=== PATIENT | female | born 1960 | race African-American/Black ===

== ENCOUNTER 2018-03-04 18:35 | Inpatient (IN) ==
[2018-03-04 19:36] LABS: Basophils % 0.4 % (0.0-0.8); Eosinophils % 0.2 % (0.00-10.9); Hematocrit 35.2 VOL% (35.7-47.0); Immature Granulocytes % 0.4 %; Immature Granulocytes Absolute 0.04 #; Lymphocytes # 1.8 10*3/uL (1.4-4.0); Lymphocytes % 20.6 % (21.3-54.2); Mean Corpuscular HGB Conc 34.1 GM/DL (32-36); Mean Corpuscular Hemoglobin 27 PG (27-34); Mean Platelet Volume 9.3 FL (9.6-12.0); Monocytes # 0.7 10*3/uL (0.11-0.8); Monocytes % 7.9 % (1.7-12.7); Neutrophils # 6.3 10*3/uL (1.4-7.4); Neutrophils % 70.5 % (38.7-73.9); Platelet Count 247 T/CUMM (130-400); White Blood Count 8.9 T/CUMM (4-12)
[2018-03-04 20:00] LABS: PT Patient Result 10.5 SECS
[2018-03-04 20:01] LABS: Albumin 2.8 G/DL (3.4-5.0); Bilirubin,Total 0.4 MG/DL (0.2-1.0); Lactic Acid 1.2 MMOL/L (0.4-2.0); Osmolality,Calculated 276.5 MOS/KG (273-304); Potassium 4.1 MMOL/L (3.5-5.1); Total Protein 7.1 G/DL (6.4-8.3)
[2018-03-05 06:49] LABS: Basophils % 0.4 % (0.0-0.8); Eosinophils # 0.1 10*3/uL (0.0-0.87); Eosinophils % 0.7 % (0.00-10.9); Hematocrit 33.4 VOL% (35.7-47.0); Hemoglobin 11.2 GM/DL (12.0-16.0); Immature Granulocytes % 0.6 %; Immature Granulocytes Absolute 0.04 #; Lymphocytes # 2.1 10*3/uL (1.4-4.0); Lymphocytes % 30.6 % (21.3-54.2); Mean Corpuscular HGB Conc 33.5 GM/DL (32-36); Mean Corpuscular Hemoglobin 27 PG (27-34); Mean Corpuscular Volume 81.3 FL (87-102); Mean Platelet Volume 9.8 FL (9.6-12.0); Monocytes # 0.8 10*3/uL (0.11-0.8); Monocytes % 11.1 % (1.7-12.7); Neutrophils # 3.9 10*3/uL (1.4-7.4); Neutrophils % 56.6 % (38.7-73.9); Platelet Count 254 T/CUMM (130-400); Red Blood Count 4.11 MC/CUMM (3.8-5.5); Red Cell Distribution Width 12.3 % (9.3-17.3)
[2018-03-05 07:02] LABS: Albumin 2.5 G/DL (3.4-5.0); Bilirubin,Total 0.7 MG/DL (0.2-1.0); Calcium 8.6 MG/DL (8.5-10.1); Osmolality,Calculated 277.1 MOS/KG (273-304); Potassium 3.9 MMOL/L (3.5-5.1); Total Protein 7.3 G/DL (6.4-8.3)
[2018-03-08 05:24] LABS: Basophils % 0.3 % (0.0-0.8); Eosinophils # 0.1 10*3/uL (0.0-0.87); Hematocrit 30.5 VOL% (35.7-47.0); Hemoglobin 10.2 GM/DL (12.0-16.0); Immature Granulocytes % 0.5 %; Immature Granulocytes Absolute 0.03 #; Lymphocytes # 1.9 10*3/uL (1.4-4.0); Lymphocytes % 31.6 % (21.3-54.2); Mean Corpuscular HGB Conc 33.4 GM/DL (32-36); Mean Corpuscular Hemoglobin 27 PG (27-34); Mean Corpuscular Volume 81.8 FL (87-102); Mean Platelet Volume 8.8 FL (9.6-12.0); Monocytes # 0.7 10*3/uL (0.11-0.8); Monocytes % 11.2 % (1.7-12.7); Neutrophils # 3.2 10*3/uL (1.4-7.4); Neutrophils % 54.4 % (38.7-73.9); Platelet Count 263 T/CUMM (130-400); Red Blood Count 3.73 MC/CUMM (3.8-5.5); Red Cell Distribution Width 12.1 % (9.3-17.3); White Blood Count 5.9 T/CUMM (4-12)
[2018-03-08 05:52] LABS: Calcium 8.4 MG/DL (8.5-10.1); Osmolality,Calculated 280.5 MOS/KG (273-304); Potassium 3.5 MMOL/L (3.5-5.1)
[2018-03-09 05:07] LABS: Basophils % 0.3 % (0.0-0.8); Eosinophils % 0.1 % (0.00-10.9); Hematocrit 31.8 VOL% (35.7-47.0); Hemoglobin 10.4 GM/DL (12.0-16.0); Immature Granulocytes % 0.4 %; Immature Granulocytes Absolute 0.04 #; Lymphocytes # 2.6 10*3/uL (1.4-4.0); Lymphocytes % 26.7 % (21.3-54.2); Mean Corpuscular HGB Conc 32.7 GM/DL (32-36); Mean Corpuscular Hemoglobin 27 PG (27-34); Mean Corpuscular Volume 83.5 FL (87-102); Monocytes # 1.1 10*3/uL (0.11-0.8); Neutrophils # 5.9 10*3/uL (1.4-7.4); Neutrophils % 61.5 % (38.7-73.9); Platelet Count 296 T/CUMM (130-400); Red Blood Count 3.81 MC/CUMM (3.8-5.5); Red Cell Distribution Width 12.2 % (9.3-17.3); White Blood Count 9.7 T/CUMM (4-12)
[2018-03-09 05:28] LABS: Calcium 8.7 MG/DL (8.5-10.1); Osmolality,Calculated 276.7 MOS/KG (273-304); Potassium 3.5 MMOL/L (3.5-5.1)
[2018-03-10 04:51] LABS: Basophils % 0.6 % (0.0-0.8); Eosinophils # 0.1 10*3/uL (0.0-0.87); Eosinophils % 1.5 % (0.00-10.9); Hematocrit 30.5 VOL% (35.7-47.0); Hemoglobin 9.8 GM/DL (12.0-16.0); Immature Granulocytes % 0.6 %; Immature Granulocytes Absolute 0.04 #; Lymphocytes # 1.9 10*3/uL (1.4-4.0); Lymphocytes % 25.8 % (21.3-54.2); Mean Corpuscular HGB Conc 32.1 GM/DL (32-36); Mean Corpuscular Hemoglobin 27 PG (27-34); Mean Corpuscular Volume 84.5 FL (87-102); Mean Platelet Volume 8.5 FL (9.6-12.0); Monocytes # 0.8 10*3/uL (0.11-0.8); Neutrophils # 4.4 10*3/uL (1.4-7.4); Neutrophils % 60.5 % (38.7-73.9); Platelet Count 291 T/CUMM (130-400); Red Blood Count 3.61 MC/CUMM (3.8-5.5); Red Cell Distribution Width 12.1 % (9.3-17.3); White Blood Count 7.3 T/CUMM (4-12)
[2018-03-10 05:24] LABS: Calcium 8.6 MG/DL (8.5-10.1); Osmolality,Calculated 280.1 MOS/KG (273-304); Potassium 3.1 MMOL/L (3.5-5.1)
[2018-03-10 05:37] LABS: Folate 18.1 NG/ML (5.4-24.0); Vitamin B12 762 PG/ML (211-911)
[2018-03-10 05:56] LABS: % Iron Saturation 12.8 % (18-50); Ferritin 181.9 ng/ml (8-252)
[2018-03-10 06:05] LABS: Sedimentation Rate-Westergren 116 MM/HR (0-30)
[2018-03-11 04:27] LABS: Basophils % 0.4 % (0.0-0.8); Eosinophils # 0.2 10*3/uL (0.0-0.87); Eosinophils % 2.2 % (0.00-10.9); Immature Granulocytes % 0.6 %; Immature Granulocytes Absolute 0.04 #; Lymphocytes % 28.7 % (21.3-54.2); Mean Corpuscular HGB Conc 33.3 GM/DL (32-36); Mean Corpuscular Hemoglobin 27 PG (27-34); Mean Corpuscular Volume 81.3 FL (87-102); Mean Platelet Volume 8.7 FL (9.6-12.0); Monocytes # 0.7 10*3/uL (0.11-0.8); Monocytes % 9.6 % (1.7-12.7); Neutrophils % 58.5 % (38.7-73.9); Platelet Count 343 T/CUMM (130-400); Red Blood Count 3.69 MC/CUMM (3.8-5.5); Red Cell Distribution Width 12.2 % (9.3-17.3); White Blood Count 6.9 T/CUMM (4-12)
[2018-03-11 04:43] LABS: Potassium 3.9 MMOL/L (3.5-5.1)
[2018-03-11 10:20] LABS: Hemoglobin A1 (Alkaline) 97.9 % (96.5-98.5); Hemoglobin A2 (Alkaline) 2.1 % (1.5-3.5)
[2018-03-11 11:34] VITALS: BP 176/106
== END 2018-03-11 15:10 | disposition home health service (06) | DRG 240 ==
LOC: EDBD → EDUNIT# → N.ED 18:35 → SUATTDRO 20:18 → N.EDINP 20:18 → SUATTDRO 20:19 → N.CC 03-05 05:28 → N.3E 03-05 16:59
PROVIDERS: ATTEND Internal Medicine

== ENCOUNTER 2018-05-12 16:19 | Inpatient (IN) ==
[2018-05-12 18:23] LABS: Basophils % 0.6 % (0.0-0.8); Eosinophils # 0.1 10*3/uL (0.0-0.87); Eosinophils % 1.8 % (0.00-10.9); Hematocrit 32.9 VOL% (35.7-47.0); Hemoglobin 10.6 GM/DL (12.0-16.0); Immature Granulocytes % 0.3 %; Immature Granulocytes Absolute 0.02 #; Lymphocytes # 2.1 10*3/uL (1.4-4.0); Lymphocytes % 31.4 % (21.3-54.2); Mean Corpuscular HGB Conc 32.2 GM/DL (32-36); Mean Corpuscular Hemoglobin 26 PG (27-34); Mean Corpuscular Volume 81.8 FL (87-102); Monocytes # 0.7 10*3/uL (0.11-0.8); Monocytes % 9.8 % (1.7-12.7); Neutrophils # 3.7 10*3/uL (1.4-7.4); Neutrophils % 56.1 % (38.7-73.9); Platelet Count 286 T/CUMM (130-400); Red Blood Count 4.02 MC/CUMM (3.8-5.5); Red Cell Distribution Width 12.4 % (9.3-17.3); White Blood Count 6.6 T/CUMM (4-12)
[2018-05-12 18:51] LABS: Alanine Aminotransferase 21 U/L (13-56); Alkaline Phosphatase 85 U/L (45-117); Aspartate Amino Transferase 17 U/L (0-37); Bilirubin,Total < 0.39 MG/DL (0.2-1.0); Blood Urea Nitrogen 17 MG/DL (7-18); Calcium 9.3 MG/DL (8.5-10.1); Glucose 93 MG/DL (74-106); Potassium 3.7 MMOL/L (3.5-5.1); Sodium 136 MMOL/L (136-145); Total Protein 8.7 G/DL (6.4-8.3)
[2018-05-12] MEDS ORDERED: DOCUSATE SODIUM 100 MG CAPSULE PO PRN (20:00)
[2018-05-12] MEDS ORDERED: DEXTROSE 50% 25 GM/50 ML VIAL IV PRN (20:00)
[2018-05-12] MEDS ORDERED: ONDANSETRON 4 MG/2 ML VIAL IV PRN (20:00)
[2018-05-12] MEDS ORDERED: GLUCAGON 1 MG VIAL IM PRN (20:00)
[2018-05-12] MEDS: SODIUM CHLORIDE 0.9% 1,000 ML IV SCH (20:23)
[2018-05-12] MEDS ORDERED: CYCLOBENZAPRINE 10 MG TABLET PO PRN (21:00)
[2018-05-12] MEDS: PIPERACILLIN/TAZOBACTAM 3,375 MG in SODIUM CHLORIDE 0.9% 100 ML IV SCH (21:57)
[2018-05-12] MEDS: HydrOXYzine PAMOATE 25 MG CAPSULE PO SCH (21:57)
[2018-05-12] MEDS: ENOXAPARIN 40 MG/0.4 ML SYRINGE SUBCUT SCH (21:57)
[2018-05-12] MEDS: INSULIN LISPRO 100 UNIT/ML SUBCUT SCH (22:02)
[2018-05-13] MEDS: VANCOMYCIN INJ 1,250 MG in SODIUM CHLORIDE 0.9% 250 ML IV SCH ×2 (02:10→15:26)
[2018-05-13 05:31] LABS: Basophils % 0.7 % (0.0-0.8); Eosinophils # 0.1 10*3/uL (0.0-0.87); Hemoglobin 10.3 GM/DL (12.0-16.0); Immature Granulocytes % 0.4 %; Immature Granulocytes Absolute 0.02 #; Lymphocytes # 2.1 10*3/uL (1.4-4.0); Lymphocytes % 38.2 % (21.3-54.2); Mean Corpuscular HGB Conc 31.2 GM/DL (32-36); Mean Corpuscular Hemoglobin 26 PG (27-34); Mean Corpuscular Volume 83.1 FL (87-102); Mean Platelet Volume 9.1 FL (9.6-12.0); Monocytes # 0.5 10*3/uL (0.11-0.8); Monocytes % 9.9 % (1.7-12.7); Neutrophils # 2.7 10*3/uL (1.4-7.4); Neutrophils % 48.8 % (38.7-73.9); Platelet Count 308 T/CUMM (130-400); Red Blood Count 3.97 MC/CUMM (3.8-5.5); Red Cell Distribution Width 12.5 % (9.3-17.3); White Blood Count 5.5 T/CUMM (4-12)
[2018-05-13] MEDS: PIPERACILLIN/TAZOBACTAM 3,375 MG in SODIUM CHLORIDE 0.9% 100 ML IV SCH ×3 (05:35→21:01)
[2018-05-13] MEDS: SODIUM CHLORIDE 0.9% 1,000 ML IV SCH ×2 (06:00→08:34)
[2018-05-13 06:02] LABS: Albumin 2.6 G/DL (3.4-5.0); Bilirubin,Total 0.7 MG/DL (0.2-1.0); Calcium 8.9 MG/DL (8.5-10.1); Osmolality,Calculated 288.8 MOS/KG (273-304); Potassium 4.3 MMOL/L (3.5-5.1); Total Protein 8.2 G/DL (6.4-8.3)
[2018-05-13 06:03] LABS: Hypochromasia 1+; Platelet Estimate Adequate
[2018-05-13] MEDS: LOSARTAN 50 MG TABLET PO SCH (08:35)
[2018-05-13] MEDS: ATENOLOL 50 MG TABLET PO SCH (08:35)
[2018-05-13] MEDS: PANTOPRAZOLE 40 MG TABLET PO SCH ×2 (08:38→10:05)
[2018-05-13] MEDS: HydrOXYzine PAMOATE 25 MG CAPSULE PO SCH ×3 (08:38→21:08)
[2018-05-13] MEDS ORDERED: LIDOCAINE 1% 20 ML VIAL ONE (12:42)
[2018-05-13] MEDS ORDERED: PROPOFOL 200 MG/20 ML VIAL IV ONE (14:07)
[2018-05-13] MEDS ORDERED: SEVOFLURANE 1 UNIT/15 MINUTE INH ONE (14:07)
[2018-05-13] MEDS ORDERED: ONDANSETRON 4 MG/2 ML VIAL ONE (14:07)
[2018-05-13] MEDS ORDERED: fentaNYL 100 MCG/2 ML VIAL ONE (14:07)
[2018-05-13] MEDS ORDERED: MIDAZOLAM 2 MG/2 ML VIAL ONE (14:07)
[2018-05-13] MEDS ORDERED: PHENYLEPHRINE 1 MG/10 ML SYRINGE IV ONE (14:08)
[2018-05-13] MEDS: INSULIN LISPRO 100 UNIT/ML SUBCUT SCH ×2 (19:49→21:07)
[2018-05-13] MEDS: INSULIN GLARGINE 100 UNIT/ML SUBCUT SCH (21:00)
[2018-05-13] MEDS: ENOXAPARIN 40 MG/0.4 ML SYRINGE SUBCUT SCH (21:08)
[2018-05-13] MEDS: ACETAMINOPHEN 325 MG TABLET PO PRN (23:38)
[2018-05-14] MEDS: VANCOMYCIN INJ 1,250 MG in SODIUM CHLORIDE 0.9% 250 ML IV SCH ×2 (00:18→17:55)
[2018-05-14] MEDS: SODIUM CHLORIDE 0.9% 1,000 ML IV SCH ×2 (01:15→02:30)
[2018-05-14] MEDS: PIPERACILLIN/TAZOBACTAM 3,375 MG in SODIUM CHLORIDE 0.9% 100 ML IV SCH ×3 (04:24→20:48)
[2018-05-14] MEDS: ACETAMINOPHEN 325 MG TABLET PO PRN (04:28)
[2018-05-14 05:44] LABS: Basophils % 0.6 % (0.0-0.8); Eosinophils # 0.2 10*3/uL (0.0-0.87); Eosinophils % 2.6 % (0.00-10.9); Hematocrit 30.2 VOL% (35.7-47.0); Hemoglobin 9.2 GM/DL (12.0-16.0); Immature Granulocytes % 0.5 %; Immature Granulocytes Absolute 0.03 #; Lymphocytes # 1.6 10*3/uL (1.4-4.0); Mean Corpuscular HGB Conc 30.5 GM/DL (32-36); Mean Corpuscular Hemoglobin 26 PG (27-34); Mean Corpuscular Volume 84.6 FL (87-102); Mean Platelet Volume 9.2 FL (9.6-12.0); Monocytes # 0.8 10*3/uL (0.11-0.8); Monocytes % 12.3 % (1.7-12.7); Neutrophils # 3.7 10*3/uL (1.4-7.4); Platelet Count 283 T/CUMM (130-400); Red Blood Count 3.57 MC/CUMM (3.8-5.5); Red Cell Distribution Width 12.7 % (9.3-17.3); White Blood Count 6.2 T/CUMM (4-12)
[2018-05-14 06:21] LABS: Albumin 2.2 G/DL (3.4-5.0); Bilirubin,Total 0.4 MG/DL (0.2-1.0); Osmolality,Calculated 280.7 MOS/KG (273-304); Potassium 4.3 MMOL/L (3.5-5.1); Total Protein 7.1 G/DL (6.4-8.3)
[2018-05-14] MEDS: INSULIN LISPRO 100 UNIT/ML SUBCUT SCH ×4 (08:59→20:47)
[2018-05-14] MEDS: HydrOXYzine PAMOATE 25 MG CAPSULE PO SCH ×3 (09:01→20:47)
[2018-05-14] MEDS: LOSARTAN 50 MG TABLET PO SCH (09:01)
[2018-05-14] MEDS: ATENOLOL 50 MG TABLET PO SCH (09:01)
[2018-05-14] MEDS: PANTOPRAZOLE 40 MG TABLET PO SCH (09:01)
[2018-05-14] MEDS: ENOXAPARIN 40 MG/0.4 ML SYRINGE SUBCUT SCH (20:47)
[2018-05-14] MEDS: INSULIN GLARGINE 100 UNIT/ML SUBCUT SCH (20:48)
[2018-05-15] MEDS: VANCOMYCIN INJ 1,250 MG in SODIUM CHLORIDE 0.9% 250 ML IV SCH ×2 (01:14→15:18)
[2018-05-15] MEDS: PIPERACILLIN/TAZOBACTAM 3,375 MG in SODIUM CHLORIDE 0.9% 100 ML IV SCH ×3 (05:10→20:52)
[2018-05-15 05:43] LABS: Basophils # 0.1 10*3/uL (0.0-0.2); Basophils % 0.6 % (0.0-0.8); Eosinophils # 0.1 10*3/uL (0.0-0.87); Eosinophils % 1.7 % (0.00-10.9); Hematocrit 28.7 VOL% (35.7-47.0); Hemoglobin 9.2 GM/DL (12.0-16.0); Immature Granulocytes % 0.5 %; Immature Granulocytes Absolute 0.04 #; Lymphocytes # 2.8 10*3/uL (1.4-4.0); Lymphocytes % 32.7 % (21.3-54.2); Mean Corpuscular HGB Conc 32.1 GM/DL (32-36); Mean Corpuscular Hemoglobin 27 PG (27-34); Mean Corpuscular Volume 83.4 FL (87-102); Monocytes % 11.8 % (1.7-12.7); Neutrophils # 4.5 10*3/uL (1.4-7.4); Neutrophils % 52.7 % (38.7-73.9); Platelet Count 296 T/CUMM (130-400); Red Blood Count 3.44 MC/CUMM (3.8-5.5); Red Cell Distribution Width 12.6 % (9.3-17.3); White Blood Count 8.4 T/CUMM (4-12)
[2018-05-15] MEDS: SODIUM CHLORIDE 0.9% 1,000 ML IV SCH ×2 (05:47→15:19)
[2018-05-15 06:38] LABS: Albumin 2.2 G/DL (3.4-5.0); Bilirubin,Total 0.6 MG/DL (0.2-1.0); Calcium 7.8 MG/DL (8.5-10.1)
[2018-05-15 06:39] LABS: Potassium 3.6 MMOL/L (3.5-5.1)
[2018-05-15] MEDS: INSULIN LISPRO 100 UNIT/ML SUBCUT SCH ×4 (07:52→20:52)
[2018-05-15] MEDS: PANTOPRAZOLE 40 MG TABLET PO SCH (08:57)
[2018-05-15] MEDS: ATENOLOL 50 MG TABLET PO SCH (08:57)
[2018-05-15] MEDS: LOSARTAN 50 MG TABLET PO SCH (08:57)
[2018-05-15] MEDS: HydrOXYzine PAMOATE 25 MG CAPSULE PO SCH ×3 (08:57→20:51)
[2018-05-15] MEDS: ENOXAPARIN 40 MG/0.4 ML SYRINGE SUBCUT SCH (20:51)
[2018-05-15] MEDS: INSULIN GLARGINE 100 UNIT/ML SUBCUT SCH (20:51)
[2018-05-16] MEDS: VANCOMYCIN INJ 1,250 MG in SODIUM CHLORIDE 0.9% 250 ML IV SCH ×2 (01:10→12:56)
[2018-05-16] MEDS: PIPERACILLIN/TAZOBACTAM 3,375 MG in SODIUM CHLORIDE 0.9% 100 ML IV SCH ×2 (05:34→12:56)
[2018-05-16 06:01] LABS: Basophils % 0.4 % (0.0-0.8); Eosinophils # 0.2 10*3/uL (0.0-0.87); Eosinophils % 2.1 % (0.00-10.9); Hematocrit 27.6 VOL% (35.7-47.0); Hemoglobin 8.8 GM/DL (12.0-16.0); Immature Granulocytes % 0.4 %; Immature Granulocytes Absolute 0.03 #; Lymphocytes # 2.2 10*3/uL (1.4-4.0); Mean Corpuscular HGB Conc 31.9 GM/DL (32-36); Mean Corpuscular Hemoglobin 27 PG (27-34); Mean Corpuscular Volume 83.1 FL (87-102); Mean Platelet Volume 8.8 FL (9.6-12.0); Monocytes # 0.8 10*3/uL (0.11-0.8); Monocytes % 11.3 % (1.7-12.7); Neutrophils % 54.8 % (38.7-73.9); Platelet Count 293 T/CUMM (130-400); Red Blood Count 3.32 MC/CUMM (3.8-5.5); Red Cell Distribution Width 12.6 % (9.3-17.3); White Blood Count 7.2 T/CUMM (4-12)
[2018-05-16 06:23] LABS: Alanine Aminotransferase 14 U/L (13-56); Alkaline Phosphatase 68 U/L (45-117); Aspartate Amino Transferase 14 U/L (0-37); Bilirubin,Total < 0.39 MG/DL (0.2-1.0); Blood Urea Nitrogen 5 MG/DL (7-18); Calcium 8.7 MG/DL (8.5-10.1); Glucose 105 MG/DL (74-106); Osmolality,Calculated 282.8 MOS/KG (273-304); Potassium 3.5 MMOL/L (3.5-5.1); Sodium 144 MMOL/L (136-145); Total Protein 6.8 G/DL (6.4-8.3)
[2018-05-16] MEDS: INSULIN LISPRO 100 UNIT/ML SUBCUT SCH ×2 (08:31→12:55)
[2018-05-16] MEDS: SODIUM CHLORIDE 0.9% 1,000 ML IV SCH ×2 (08:31→14:18)
[2018-05-16] MEDS: LOSARTAN 50 MG TABLET PO SCH (09:07)
[2018-05-16] MEDS: HydrOXYzine PAMOATE 25 MG CAPSULE PO SCH (09:07)
[2018-05-16] MEDS: ATENOLOL 50 MG TABLET PO SCH (09:07)
[2018-05-16] MEDS: PANTOPRAZOLE 40 MG TABLET PO SCH (09:07)
[2018-05-16 12:40] VITALS: BP 154/87
== END 2018-05-16 13:52 | disposition home health service (06) | DRG 617 ==
LOC: N.ED 16:19 → N.EDINP 20:00 → N.3E 20:48
PROVIDERS: ADMIT Internal Medicine; ATTEND Internal Medicine

== ENCOUNTER 2021-08-25 08:42 | Inpatient (IN) ==
[2021-08-25] MEDS ORDERED: MAGNESIUM SULF RIDER 4 GM/100 ML PREMIX IV PRN (10:02)
[2021-08-25] MEDS ORDERED: MAGNESIUM SULF RIDER 2 GM/50 ML PREMIX IV PRN (10:02)
[2021-08-25] MEDS ORDERED: GLUCAGON 1 MG VIAL IM PRN (10:02)
[2021-08-25] MEDS ORDERED: DEXTROSE 10% 250 ML BAG IV PRN (10:02)
[2021-08-25] MEDS ORDERED: POTASSIUM CHLORIDE RIDER 10 MEQ/100 ML PREMIX IV PRN (10:07)
[2021-08-25] MEDS ORDERED: POTASSIUM CHLORIDE 20 MEQ TABLET PO PRN (10:07)
[2021-08-25] MEDS: SODIUM CHLORIDE 0.9% 1,000 ML IV SCH (11:10)
[2021-08-25 11:11] LABS: Basophils # 0.1 10*3/uL (0.0-0.2); Basophils % 0.9 % (0.0-0.8); Eosinophils # 0.1 10*3/uL (0.0-0.87); Eosinophils % 2.1 % (0.00-10.9); Hematocrit 33.3 VOL% (35.7-47.0); Hemoglobin 10.6 GM/DL (12.0-16.0); Immature Granulocytes % 0.7 %; Immature Granulocytes Absolute 0.04 #; Lymphocytes # 1.6 10*3/uL (1.4-4.0); Lymphocytes % 28.2 % (21.3-54.2); Mean Corpuscular HGB Conc 31.8 GM/DL (32-36); Mean Corpuscular Volume 81.2 FL (87-102); Monocytes % 13.2 % (1.7-12.7); Neutrophils % 54.9 % (38.7-73.9); Platelet Count 288 T/CUMM (130-400); Red Cell Distribution Width 15.5 % (9.3-17.3); White Blood Count 5.7 T/CUMM (4-12)
[2021-08-25 11:37] LABS: Calcium 9.3 MG/DL (8.5-10.1); Potassium 3.9 MMOL/L (3.5-5.1)
[2021-08-25 11:45] LABS: Albumin 2.3 G/DL (3.4-5.0); Bilirubin,Direct 11.34 MG/DL (0.0-0.20); Total Protein 6.4 G/DL (6.4-8.2)
[2021-08-25 11:46] LABS: Bilirubin,Indirect 3.1 MG/DL (0.0-1.0); Bilirubin,Total 14.4 MG/DL (0.20-1.00)
[2021-08-25] MEDS ORDERED: ALUM/MAG/SIMETH/LIDO VISC 1:1 30 ML BOTTLE PO ONE (12:00)
[2021-08-25] MEDS ORDERED: PANTOPRAZOLE 40 MG VIAL IV SCH (13:00)
[2021-08-25] MEDS: INSULIN LISPRO 100 UNIT/ML SUBCUT SCH ×2 (14:39→18:50)
[2021-08-25] MEDS ORDERED: diphenhydrAMINE 50 MG/1 ML VIAL IM PRN (17:43)
[2021-08-25] MEDS ORDERED: cloNIDine 0.1 MG/24 HR PATCH TRANSDERM ONE (21:00)
[2021-08-26] MEDS: INSULIN LISPRO 100 UNIT/ML SUBCUT SCH ×5 (00:30→20:47)
[2021-08-26] MEDS: ONDANSETRON 4 MG/2 ML VIAL IV PRN ×2 (00:30→18:27)
[2021-08-26] MEDS: PANTOPRAZOLE 40 MG VIAL IV SCH ×3 (00:30→20:46)
[2021-08-26] MEDS: DOCUSATE SODIUM 100 MG CAPSULE PO SCH ×3 (00:30→20:46)
[2021-08-26] MEDS: SODIUM CHLORIDE 0.9% 1,000 ML IV SCH ×4 (02:45→18:27)
[2021-08-26 06:34] LABS: Basophils % 0.4 % (0.0-0.8); Eosinophils # 0.1 10*3/uL (0.0-0.87); Eosinophils % 1.5 % (0.00-10.9); Hematocrit 31.4 VOL% (35.7-47.0); Hemoglobin 9.9 GM/DL (12.0-16.0); Immature Granulocytes % 0.4 %; Immature Granulocytes Absolute 0.02 #; Lymphocytes # 1.6 10*3/uL (1.4-4.0); Mean Corpuscular HGB Conc 31.5 GM/DL (32-36); Mean Corpuscular Volume 81.3 FL (87-102); Mean Platelet Volume 9.8 FL (9.6-12.0); Neutrophils % 45.7 % (38.7-73.9); Platelet Count 235 T/CUMM (130-400); Red Blood Count 3.86 MC/CUMM (3.8-5.5); Red Cell Distribution Width 16.1 % (9.3-17.3); White Blood Count 4.7 T/CUMM (4-12)
[2021-08-26 07:05] LABS: Albumin 1.8 G/DL (3.4-5.0); Bilirubin,Direct 10.06 MG/DL (0.0-0.20); Calcium 8.5 MG/DL (8.5-10.1); Osmolality,Calculated 275.5 MOS/KG (273-304); Potassium 3.6 MMOL/L (3.5-5.1); Total Protein 5.8 G/DL (6.4-8.2)
[2021-08-26 07:14] LABS: Bacteria,Urine Occasional /HPF (Few); Blood, Urine Negative (Negative); Glucose,Urine (UA) >=500 mg/dL (Negative); Ketones,Urine Negative (Negative); Mucus,Urine Occasional /LPF (Occasional); Nitrite,Urine Negative (Negative); Protein,Urine 30 MG/DL; RBC,Urine 1 /HPF (0-4); Squamous Epithelial Cell,Urine Occasional /HPF (0-10); Urine Appearance CLEAR (Clear); Urine Color Amber (Yellow); Urine Specific Gravity 1.007 (1.001-1.035)
[2021-08-26 07:15] LABS: Bilirubin,Urine Moderate mg/dL (Negative)
[2021-08-26 07:17] LABS: Bilirubin,Indirect 2.6 MG/DL (0.0-1.0); Bilirubin,Total 12.7 MG/DL (0.20-1.00)
[2021-08-26 07:19] LABS: Eosinophils 3 % (0-10); Lymphocytes 31 % (20-55); Segmented Neutrophils 52 % (50-85); Total Cells Counted 100
[2021-08-26 07:20] LABS: Anisocytosis 1+; Hypochromia 2+; Microcytosis 1+; Platelet Estimate Normal; Target Cells Slight
[2021-08-26 09:42] LABS: INR 1.3; PT Patient Result 14.3 SECS (10.5-12.0)
[2021-08-26] MEDS ORDERED: DIAZEPAM 5 MG TABLET PO ONE (10:59)
[2021-08-26] MEDS ORDERED: SODIUM CHLORIDE 0.45% 1,000 ML IV SCH ×2 (11:00)
[2021-08-26] MEDS: MORPHINE 2 MG/1 ML SYRINGE IV PRN ×2 (13:19→20:51)
[2021-08-26] MEDS ORDERED: DEXTROSE 50% 25 GM/50 ML VIAL IV PRN (14:15)
[2021-08-26] MEDS: hydrALAZINE 20 MG/1 ML VIAL IV PRN ×2 (14:33→23:33)
[2021-08-26] MEDS: traMADol 50 MG TABLET PO PRN (16:08)
[2021-08-26] MEDS: PROMETHAZINE 25 MG/1 ML VIAL IM PRN (20:50)
[2021-08-27] MEDS: ONDANSETRON 4 MG/2 ML VIAL IV PRN (00:50)
[2021-08-27] MEDS: SODIUM CHLORIDE 0.9% 1,000 ML IV SCH ×4 (01:06→17:48)
[2021-08-27] MEDS: PROMETHAZINE 25 MG/1 ML VIAL IM PRN (01:13)
[2021-08-27 04:59] LABS: Basophils % 0.3 % (0.0-0.8); Eosinophils % 0.3 % (0.00-10.9); Hematocrit 33.3 VOL% (35.7-47.0); Hemoglobin 10.4 GM/DL (12.0-16.0); Immature Granulocytes % 1.6 %; Immature Granulocytes Absolute 0.09 #; Lymphocytes # 1.2 10*3/uL (1.4-4.0); Lymphocytes % 20.1 % (21.3-54.2); Mean Corpuscular HGB Conc 31.2 GM/DL (32-36); Mean Corpuscular Volume 82.4 FL (87-102); Neutrophils % 65.7 % (38.7-73.9); Platelet Count 232 T/CUMM (130-400); Red Blood Count 4.04 MC/CUMM (3.8-5.5); Red Cell Distribution Width 16.6 % (9.3-17.3); White Blood Count 5.8 T/CUMM (4-12)
[2021-08-27 05:28] LABS: Albumin 1.9 G/DL (3.4-5.0); Bilirubin,Direct 11.93 MG/DL (0.0-0.20); Calcium 8.5 MG/DL (8.5-10.1); Osmolality,Calculated 277.8 MOS/KG (273-304); Potassium 4.1 MMOL/L (3.5-5.1)
[2021-08-27 05:33] LABS: Bilirubin,Indirect 2.6 MG/DL (0.0-1.0); Bilirubin,Total 14.5 MG/DL (0.20-1.00)
[2021-08-27] MEDS: DOCUSATE SODIUM 100 MG CAPSULE PO SCH ×2 (10:29→20:09)
[2021-08-27] MEDS: PANTOPRAZOLE 40 MG VIAL IV SCH ×2 (10:31→20:09)
[2021-08-27] MEDS: INSULIN LISPRO 100 UNIT/ML SUBCUT SCH ×4 (11:48→20:09)
[2021-08-27] MEDS: MORPHINE 2 MG/1 ML SYRINGE IV PRN (20:14)
[2021-08-28] MEDS: SODIUM CHLORIDE 0.9% 1,000 ML IV SCH ×3 (03:48→21:04)
[2021-08-28 04:02] LABS: Basophils % 0.7 % (0.0-0.8); Eosinophils % 0.2 % (0.00-10.9); Hemoglobin 9.5 GM/DL (12.0-16.0); Immature Granulocytes % 0.5 %; Immature Granulocytes Absolute 0.02 #; Lymphocytes # 1.4 10*3/uL (1.4-4.0); Lymphocytes % 32.4 % (21.3-54.2); Mean Corpuscular HGB Conc 31.7 GM/DL (32-36); Mean Platelet Volume 9.2 FL (9.6-12.0); Monocytes % 13.5 % (1.7-12.7); Neutrophils % 52.7 % (38.7-73.9); Platelet Count 214 T/CUMM (130-400); Red Blood Count 3.66 MC/CUMM (3.8-5.5); Red Cell Distribution Width 17.2 % (9.3-17.3); White Blood Count 4.4 T/CUMM (4-12)
[2021-08-28 04:21] LABS: Albumin 1.6 G/DL (3.4-5.0); Bilirubin,Direct 10.2 MG/DL (0.0-0.20); Calcium 8.5 MG/DL (8.5-10.1); Potassium 3.5 MMOL/L (3.5-5.1); Total Protein 5.4 G/DL (6.4-8.2)
[2021-08-28 04:24] LABS: Bilirubin,Indirect 2.2 MG/DL (0.0-1.0); Bilirubin,Total 12.4 MG/DL (0.20-1.00)
[2021-08-28] MEDS: DOCUSATE SODIUM 100 MG CAPSULE PO SCH ×2 (09:22→21:06)
[2021-08-28] MEDS: PANTOPRAZOLE 40 MG VIAL IV SCH ×2 (09:22→21:06)
[2021-08-28] MEDS: INSULIN LISPRO 100 UNIT/ML SUBCUT SCH ×4 (09:23→21:06)
[2021-08-28] MEDS: ONDANSETRON 4 MG/2 ML VIAL IV PRN (09:26)
[2021-08-28] MEDS: MORPHINE 2 MG/1 ML SYRINGE IV PRN (09:27)
[2021-08-28] MEDS: traMADol 50 MG TABLET PO PRN (21:06)
[2021-08-29 06:14] LABS: Albumin 1.7 G/DL (3.4-5.0); Bilirubin,Direct 9.45 MG/DL (0.0-0.20); Bilirubin,Indirect 2.3 MG/DL (0.0-1.0); Bilirubin,Total 11.7 MG/DL (0.20-1.00); Calcium 8.3 MG/DL (8.5-10.1); Osmolality,Calculated 272.8 MOS/KG (273-304); Potassium 3.3 MMOL/L (3.5-5.1); Total Protein 5.5 G/DL (6.4-8.2)
[2021-08-29] MEDS: SODIUM CHLORIDE 0.9% 1,000 ML IV SCH ×3 (06:43→15:49)
[2021-08-29] MEDS: PANTOPRAZOLE 40 MG VIAL IV SCH ×2 (08:54→20:35)
[2021-08-29] MEDS: DOCUSATE SODIUM 100 MG CAPSULE PO SCH ×2 (08:54→20:33)
[2021-08-29] MEDS: traMADol 50 MG TABLET PO PRN (09:12)
[2021-08-29] MEDS: INSULIN LISPRO 100 UNIT/ML SUBCUT SCH ×4 (10:33→20:34)
[2021-08-29] MEDS: ONDANSETRON 4 MG/2 ML VIAL IV PRN (16:56)
[2021-08-30] MEDS: MAGNESIUM HYDROXIDE SUSP 30 ML UDCUP PO PRN ×2 (00:11→10:09)
[2021-08-30] MEDS: SODIUM CHLORIDE 0.9% 1,000 ML IV SCH ×2 (06:36→20:47)
[2021-08-30] MEDS: INSULIN LISPRO 100 UNIT/ML SUBCUT SCH ×4 (07:41→20:44)
[2021-08-30 09:02] LABS: Basophils % 0.5 % (0.0-0.8); Eosinophils # 0.2 10*3/uL (0.0-0.87); Eosinophils % 4.1 % (0.00-10.9); Hematocrit 30.3 VOL% (35.7-47.0); Hemoglobin 9.8 GM/DL (12.0-16.0); Immature Granulocytes % 0.7 %; Immature Granulocytes Absolute 0.03 #; Lymphocytes # 1.2 10*3/uL (1.4-4.0); Lymphocytes % 29.1 % (21.3-54.2); Mean Corpuscular HGB Conc 32.3 GM/DL (32-36); Mean Corpuscular Volume 81.9 FL (87-102); Monocytes % 13.8 % (1.7-12.7); Neutrophils % 51.8 % (38.7-73.9); Platelet Count 222 T/CUMM (130-400); Red Cell Distribution Width 18.3 % (9.3-17.3); White Blood Count 4.2 T/CUMM (4-12)
[2021-08-30 09:41] LABS: Albumin 1.7 G/DL (3.4-5.0); Bilirubin,Direct 10.26 MG/DL (0.0-0.20); Calcium 8.5 MG/DL (8.5-10.1); Osmolality,Calculated 271.2 MOS/KG (273-304); Potassium 3.4 MMOL/L (3.5-5.1); Total Protein 5.8 G/DL (6.4-8.2)
[2021-08-30 09:43] LABS: Bilirubin,Indirect 2.5 MG/DL (0.0-1.0); Bilirubin,Total 12.8 MG/DL (0.20-1.00)
[2021-08-30] MEDS: carvediloL 6.25 MG TABLET PO SCH ×2 (10:08→17:52)
[2021-08-30] MEDS: DOCUSATE SODIUM 100 MG CAPSULE PO SCH ×2 (10:08→20:45)
[2021-08-30] MEDS: PANTOPRAZOLE 40 MG VIAL IV SCH ×2 (10:08→20:44)
[2021-08-30] MEDS: amLODIPine 10 MG TABLET PO SCH (10:09)
[2021-08-30] MEDS: hydrALAZINE 20 MG/1 ML VIAL IV PRN (10:09)
[2021-08-30] MEDS: ISOSORBIDE MONONITRATE 30 MG TABLET PO SCH (10:09)
[2021-08-30] MEDS: ONDANSETRON 4 MG/2 ML VIAL IV PRN ×2 (10:20→20:49)
[2021-08-30] MEDS ORDERED: MINERAL OIL ENEMA 133 ML BOTTLE RECTAL ONE (13:00)
[2021-08-31 05:20] LABS: Basophils % 0.6 % (0.0-0.8); Eosinophils % 0.2 % (0.00-10.9); Hematocrit 27.8 VOL% (35.7-47.0); Immature Granulocytes % 0.9 %; Immature Granulocytes Absolute 0.05 #; Lymphocytes # 1.5 10*3/uL (1.4-4.0); Mean Corpuscular HGB Conc 32.4 GM/DL (32-36); Mean Corpuscular Volume 80.6 FL (87-102); Mean Platelet Volume 10.5 FL (9.6-12.0); Monocytes % 13.1 % (1.7-12.7); Neutrophils % 57.2 % (38.7-73.9); Platelet Count 207 T/CUMM (130-400); Red Blood Count 3.45 MC/CUMM (3.8-5.5); Red Cell Distribution Width 18.6 % (9.3-17.3); White Blood Count 5.3 T/CUMM (4-12)
[2021-08-31] MEDS: ONDANSETRON 4 MG/2 ML VIAL IV PRN ×2 (05:29→17:09)
[2021-08-31 05:42] LABS: Albumin 1.6 G/DL (3.4-5.0); Bilirubin,Direct 9.71 MG/DL (0.0-0.20); Bilirubin,Indirect 3.6 MG/DL (0.0-1.0); Calcium 8.4 MG/DL (8.5-10.1); Osmolality,Calculated 272.8 MOS/KG (273-304); Potassium 3.6 MMOL/L (3.5-5.1); Total Protein 5.5 G/DL (6.4-8.2)
[2021-08-31 05:44] LABS: Bilirubin,Total 13.3 MG/DL (0.20-1.00)
[2021-08-31] MEDS: INSULIN LISPRO 100 UNIT/ML SUBCUT SCH ×4 (08:10→21:31)
[2021-08-31] MEDS: DOCUSATE SODIUM 100 MG CAPSULE PO SCH ×2 (08:51→21:31)
[2021-08-31] MEDS: traMADol 50 MG TABLET PO PRN ×2 (08:51→21:33)
[2021-08-31] MEDS: ISOSORBIDE MONONITRATE 30 MG TABLET PO SCH (08:52)
[2021-08-31] MEDS: carvediloL 6.25 MG TABLET PO SCH ×2 (08:52→17:12)
[2021-08-31] MEDS: PANTOPRAZOLE 40 MG VIAL IV SCH ×2 (08:52→21:31)
[2021-08-31] MEDS: amLODIPine 10 MG TABLET PO SCH (08:52)
[2021-08-31] MEDS: MAGNESIUM OXIDE 400 MG TABLET PO SCH (08:52)
[2021-08-31] MEDS ORDERED: ALUM/MAG/SIMETH/LIDO VISC 1:1 30 ML BOTTLE PO ONE (11:00)
[2021-08-31] MEDS: SODIUM CHLORIDE 0.9% 1,000 ML IV SCH (17:12)
[2021-09-01] MEDS: SODIUM CHLORIDE 0.9% 1,000 ML IV SCH ×3 (00:55→22:01)
[2021-09-01 05:46] LABS: Basophils % 0.7 % (0.0-0.8); Eosinophils # 0.1 10*3/uL (0.0-0.87); Hematocrit 27.2 VOL% (35.7-47.0); Hemoglobin 8.8 GM/DL (12.0-16.0); Immature Granulocytes % 0.9 %; Immature Granulocytes Absolute 0.04 #; Lymphocytes # 1.3 10*3/uL (1.4-4.0); Lymphocytes % 28.3 % (21.3-54.2); Mean Corpuscular HGB Conc 32.4 GM/DL (32-36); Mean Corpuscular Volume 81.4 FL (87-102); Mean Platelet Volume 10.3 FL (9.6-12.0); Monocytes % 15.2 % (1.7-12.7); Neutrophils % 52.9 % (38.7-73.9); Platelet Count 244 T/CUMM (130-400); Red Blood Count 3.34 MC/CUMM (3.8-5.5); Red Cell Distribution Width 19.5 % (9.3-17.3); White Blood Count 4.4 T/CUMM (4-12)
[2021-09-01 06:09] LABS: Albumin 1.6 G/DL (3.4-5.0); Bilirubin,Direct 10.33 MG/DL (0.0-0.20); Bilirubin,Indirect 2.7 MG/DL (0.0-1.0); Calcium 8.9 MG/DL (8.5-10.1); Potassium 3.3 MMOL/L (3.5-5.1); Total Protein 5.5 G/DL (6.4-8.2)
[2021-09-01] MEDS ORDERED: LACTATED RINGERS 1,000 ML IV SCH (08:00)
[2021-09-01] MEDS: INSULIN LISPRO 100 UNIT/ML SUBCUT SCH ×4 (08:02→21:55)
[2021-09-01] MEDS: carvediloL 6.25 MG TABLET PO SCH ×2 (08:02→18:33)
[2021-09-01] MEDS ORDERED: propofoL 200 MG/20 ML VIAL IV ONE (09:02)
[2021-09-01] MEDS ORDERED: LIDOCAINE 2% 5 ML VIAL ONE (09:02)
[2021-09-01] MEDS: MAGNESIUM OXIDE 400 MG TABLET PO SCH (10:04)
[2021-09-01] MEDS: amLODIPine 10 MG TABLET PO SCH (10:04)
[2021-09-01] MEDS: DOCUSATE SODIUM 100 MG CAPSULE PO SCH ×2 (10:04→21:54)
[2021-09-01] MEDS: ISOSORBIDE MONONITRATE 30 MG TABLET PO SCH (10:04)
[2021-09-01] MEDS: ONDANSETRON 4 MG/2 ML VIAL IV PRN (10:14)
[2021-09-01] MEDS: PANTOPRAZOLE 40 MG VIAL IV SCH ×2 (10:17→21:54)
[2021-09-02] MEDS: SODIUM CHLORIDE 0.9% 1,000 ML IV SCH ×2 (03:00→16:16)
[2021-09-02] MEDS: ONDANSETRON 4 MG/2 ML VIAL IV PRN ×2 (06:05→22:03)
[2021-09-02] MEDS: INSULIN LISPRO 100 UNIT/ML SUBCUT SCH ×4 (08:44→22:03)
[2021-09-02] MEDS: PANTOPRAZOLE 40 MG VIAL IV SCH ×2 (08:44→22:03)
[2021-09-02] MEDS: amLODIPine 10 MG TABLET PO SCH (08:45)
[2021-09-02] MEDS: carvediloL 6.25 MG TABLET PO SCH ×2 (08:45→16:56)
[2021-09-02] MEDS: ISOSORBIDE MONONITRATE 30 MG TABLET PO SCH (08:45)
[2021-09-02] MEDS: MAGNESIUM OXIDE 400 MG TABLET PO SCH (08:45)
[2021-09-02] MEDS: DOCUSATE SODIUM 100 MG CAPSULE PO SCH ×2 (08:45→22:03)
[2021-09-02 09:37] LABS: Basophils % 0.7 % (0.0-0.8); Eosinophils # 0.1 10*3/uL (0.0-0.87); Eosinophils % 3.4 % (0.00-10.9); Hematocrit 30.3 VOL% (35.7-47.0); Hemoglobin 9.8 GM/DL (12.0-16.0); Immature Granulocytes Absolute 0.04 #; Lymphocytes # 1.2 10*3/uL (1.4-4.0); Lymphocytes % 28.4 % (21.3-54.2); Mean Corpuscular HGB Conc 32.3 GM/DL (32-36); Mean Corpuscular Volume 82.1 FL (87-102); Mean Platelet Volume 9.3 FL (9.6-12.0); Monocytes % 14.7 % (1.7-12.7); Neutrophils % 51.8 % (38.7-73.9); Platelet Count 229 T/CUMM (130-400); Red Blood Count 3.69 MC/CUMM (3.8-5.5); Red Cell Distribution Width 20.5 % (9.3-17.3); White Blood Count 4.2 T/CUMM (4-12)
[2021-09-02 09:54] LABS: Calcium 8.9 MG/DL (8.5-10.1); Osmolality,Calculated 269.2 MOS/KG (273-304); Potassium 3.5 MMOL/L (3.5-5.1)
[2021-09-02 10:12] LABS: Albumin 1.7 G/DL (3.4-5.0); Bilirubin,Direct 10.78 MG/DL (0.0-0.20); Bilirubin,Indirect 2.8 MG/DL (0.0-1.0); Total Protein 6.1 G/DL (6.4-8.2)
[2021-09-02 10:15] LABS: Bilirubin,Total 13.6 MG/DL (0.20-1.00)
[2021-09-03] MEDS: SODIUM CHLORIDE 0.9% 1,000 ML IV SCH (05:24)
[2021-09-03 05:33] LABS: Basophils % 0.4 % (0.0-0.8); Hematocrit 26.9 VOL% (35.7-47.0); Hemoglobin 8.6 GM/DL (12.0-16.0); Immature Granulocytes % 0.4 %; Immature Granulocytes Absolute 0.02 #; Lymphocytes # 1.3 10*3/uL (1.4-4.0); Lymphocytes % 28.3 % (21.3-54.2); Mean Platelet Volume 9.7 FL (9.6-12.0); Monocytes % 15.6 % (1.7-12.7); Neutrophils % 55.3 % (38.7-73.9); Platelet Count 250 T/CUMM (130-400); Red Blood Count 3.28 MC/CUMM (3.8-5.5); Red Cell Distribution Width 20.6 % (9.3-17.3); White Blood Count 4.5 T/CUMM (4-12)
[2021-09-03 06:04] LABS: Albumin 1.5 G/DL (3.4-5.0); Bilirubin,Direct 9.45 MG/DL (0.0-0.20); Bilirubin,Indirect 2.4 MG/DL (0.0-1.0); Bilirubin,Total 11.8 MG/DL (0.20-1.00); Calcium 8.8 MG/DL (8.5-10.1); Osmolality,Calculated 271.1 MOS/KG (273-304); Potassium 3.3 MMOL/L (3.5-5.1); Total Protein 5.3 G/DL (6.4-8.2)
[2021-09-03 06:23] LABS: Eosinophils 2 % (0-10); Hypochromia 1+; Lymphocytes 16 % (20-55); Microcytosis 1+; Platelet Estimate Normal; Segmented Neutrophils 67 % (50-85); Total Cells Counted 100
[2021-09-03] MEDS: ISOSORBIDE MONONITRATE 30 MG TABLET PO SCH (09:35)
[2021-09-03] MEDS: DOCUSATE SODIUM 100 MG CAPSULE PO SCH (09:35)
[2021-09-03] MEDS: amLODIPine 10 MG TABLET PO SCH (09:35)
[2021-09-03] MEDS: carvediloL 6.25 MG TABLET PO SCH (09:35)
[2021-09-03] MEDS: PANTOPRAZOLE 40 MG VIAL IV SCH (09:35)
[2021-09-03] MEDS: INSULIN LISPRO 100 UNIT/ML SUBCUT SCH ×2 (09:35→12:20)
[2021-09-03] MEDS: MAGNESIUM OXIDE 400 MG TABLET PO SCH (09:35)
[2021-09-03 12:08] VITALS: BP 117/70
[2021-09-03] MEDS: ONDANSETRON 4 MG/2 ML VIAL IV PRN (12:20)
== END 2021-09-03 17:50 | disposition home health service (06) ==
LOC: INTOOBSV 09:34 → N.5E 09:34
PROVIDERS: ADMIT Family Medicine; ATTEND Family Medicine